=== PATIENT | male | born 1955 | race Caucasian/White ===

== ENCOUNTER 2019-04-11 21:11 | Inpatient (IN) | payer OTHER ==
[~2019-04-11] VITALS: Ht 180.3 cm; Wt 76.4 kg
[2019-04-11 22:02] LABS: Basophils # (auto) 0.1 uL; Eosinophils # (auto) 0.1 uL; Eosinophils % (auto) 1.4 % (0.0-7.0); Hematocrit 47.7 % (41.0-53.0); Hemoglobin 16.2 g/dL (13.5-17.5); Lymphocytes # (auto) 1.8 uL; Lymphocytes % (auto) 25.8 % (10.0-50.0); Mean Corpuscular Hemoglobin 31.2 pg (28.0-32.0); Mean Corpuscular Hgb Conc. 33.9 g/dL (32.0-36.0); Mean Corpuscular Volume 92.2 fL (80.0-100.0); Monocytes # (auto) 0.6 uL; Monocytes % (auto) 8.6 % (0.0-12.0); Neutrophils # (auto) 4.4 uL; Neutrophils % (auto) 63.2 % (37.0-80.0); Nucleated Red Blood Cells % 0.1 %; Platelet Count (auto) 317 10^3/uL (140-450); Red Blood Cells 5.18 10^6/uL (4.5-5.90); Red Cell Distribution Width 14.4 % (11.8-14.3); White Blood Cell 6.9 10^3/uL (4.4-10.8)
[2019-04-11 22:22] LABS: Alanine Aminotransferase 15 U/L (16-61); Albumin 3.4 g/dL (3.4-5.0); Anion Gap 6 (5-15); Aspartate Aminotransferase 13 U/L (15-37); BUN/Creatinine Ratio 16.9; Blood Urea Nitrogen 23 mg/dL (7-18); Calcium 8.2 mg/dL (8.5-10.1); Carbon Dioxide 28 mmol/L (21-32); Chloride 106 mmol/L (98-107); GFR African American 68 mL/min; GFR Non-African American 56 mL/min; Glucose 88 mg/dL (74-106); Sodium 140 mmol/L (136-145)
[2019-04-11 22:27] LABS: Alkaline Phosphatase 79 U/L (45-117); Bilirubin, Total 0.3 mg/dL (0.2-1.0); Total Protein 6.8 g/dL (6.4-8.2)
[2019-04-12] MEDS ORDERED: IPRATROPIUM BROM 0.5 MG/2.5ML INH SOL NEB ONE
[2019-04-12] MEDS ORDERED: ALBUTEROL SULF 2.5 MG/0.5ML(0.5%) NEB SOLN NEB ONE
[2019-04-12] MEDS ORDERED: FAMOTIDINE (10MG/ML) 2ML VL IV ONE (02:45)
[2019-04-12] MEDS ORDERED: IPRATROPIUM BROM 0.5 MG/2.5ML INH SOL NEB PRN (07:15)
[2019-04-12] MEDS ORDERED: ONDANSETRON HCL 4 MG/2 ML VIAL IV PRN (07:15)
[2019-04-12] MEDS ORDERED: ALBUTEROL SULF 2.5 MG/0.5ML(0.5%) NEB SOLN NEB PRN (07:15)
[2019-04-12] MEDS ORDERED: MORPHINE SULF INJ 2 MG/ML SYRINGE 1ML IV PRN ×2 (07:15)
[2019-04-12] MEDS ORDERED: ACETAMINOPHEN 500 MG TAB PO PRN (07:15)
[2019-04-12] MEDS ORDERED: HYDROcodone-ACET 5/325MG TAB PO PRN (07:15)
[2019-04-12] MEDS ORDERED: hydrALAZINE HCL 20 MG/ML VL IV PRN (07:15)
[2019-04-12] MEDS ORDERED: NITROGLYCERIN 0.4 MG SL TAB SL PRN (07:15)
[2019-04-12 07:33] LABS: CRP High Sensitivity 0.1 mg/dL (< 0.3)
[2019-04-12 09:00] VITALS: BP 162/104
--- NOTE | 2019-04-12 09:00 | NUR ---
Telemetry admit from ER MAN THOMPSON admitted to Telemetry unit after SBAR received. Patient oriented to MERCEDES VALIENTE, primary RN, unit, room, bed, and unit policies regarding patient care and visiting hours. Patient now on continuous telemetry monitoring, tele box # [id number] and telemetry reading on arrival to unit is . Patient placed on bedside oxygen, weighed by bed scale and encouraged to call if they need something. All questions and concerns addressed, patient verbalized understanding.
[2019-04-12 09:01] VITALS: BP 162/104
--- NOTE | 2019-04-12 10:30 | NUR ---
Respiratory note: PRN ASSESSMENT DONE. PT AWAKE, ALERT AND ORIENTED. PT ON RA SP02 95%. PT IS IN NO DISTRESS AT THIS TIME. BS ARE DIMINISHED. NO TREATMENT INDICATED AT THIS TIME. INFORMED PT TO HIT CALL BUTTON IF BECOMES SOB.
--- NOTE | 2019-04-12 11:40 | NUR ---
Stress Lab called due to patient cannot get a test done today, will be tomorrow morning. Patient notified.
[2019-04-12] MEDS: FAMOTIDINE 20 MG TAB PO SCH (11:44)
[2019-04-12] MEDS: ASPirin-EC 81 mg tab PO SCH (11:44)
[2019-04-12] MEDS: DOCUSATE SOD 100 MG CAP PO SCH ×2 (11:44→21:31)
[2019-04-12] MEDS: LISINOPRIL 10 MG TAB PO SCH (11:45)
[2019-04-12] MEDS: METOPROLOL TARTRATE 25 MG TAB PO SCH ×2 (11:45→21:31)
[2019-04-12 16:13] VITALS: BP 162/104
[2019-04-12 17:00] VITALS: BP 122/88
[2019-04-12 17:04] VITALS: BP 134/87
[2019-04-12 17:53] LABS: INR 0.93 (0.9-1.15); Partial Thromboplastin Time 30.8 sec (23.64-32.05)
[2019-04-12 18:14] LABS: Urine Bacteria NONE SEEN /hpf (None Seen); Urine Blood Negative /uL (Negative); Urine Specific Gravity 1.016 (1.001-1.035); Urine WBC <1 /hpf (0 - 3)
[2019-04-12 18:17] LABS: Alcohol, Urine < 3.0 mg/dL (0-5); Amphetamine Screen, Urine POSITIVE (NEGATIVE); Barbiturate Scree,Urine NEGATIVE (NEGATIVE); Benzodiazephine Screen, Urine NEGATIVE (NEGATIVE); Cannabinoid Screen, Urine POSITIVE (NEGATIVE); Cocaine Screen, Urine NEGATIVE (NEGATIVE); Opiate Scree,Urine NEGATIVE (NEGATIVE); Phencyclidine Screen, Urine NEGATIVE (NEGATIVE)
--- NOTE | 2019-04-12 19:45 | NUR ---
OPENING SHIFT NOTE RECEIVED REPORT FROM DAYSHIFT RN. PATIENT A/O X4, AMBULATORY. NO S/S OF DISTRESS OR SOB. NO PAIN NOTED OR REPORTED AT THIS TIME. DEPUTY AT BEDSIDE FOR SAFETY. UPDATED PATIENT ON POC, VERBALIZED UNDERSTANDING. BED LOCKED IN LOW POSITION, CALL LIGHT WITHIN REACH. WILL CONTINUE TO MONITOR PATIENT Q1HR AND PRN.
[2019-04-12] MEDS: ATORVASTATIN 20 MG TAB PO SCH (21:31)
[2019-04-12 22:19] VITALS: BP 127/94
--- NOTE | 2019-04-12 23:03 | NUR ---
Respiratory note: PT SEEN AND ASSESSED FOR PRN MED NEB TX AT 2303. TX NOT INDICATED AT THIS TIME. PT STATED THAT HE FEELS OKAY RIGHT NOW AND KNOWS TO CALL IF HE NEEDS A TX. HR 57 RR 20 POX 97% ON ROOM AIR.
[2019-04-13 05:00] VITALS: BP 131/75
[2019-04-13 07:01] LABS: INR 0.93 (0.9-1.15); Partial Thromboplastin Time 30.8 sec (23.64-32.05)
[2019-04-13 07:03] LABS: Basophils # (auto) 0.1 uL; Basophils % (auto) 0.8 % (0.0-2.0); Eosinophils # (auto) 0.1 uL; Eosinophils % (auto) 1.6 % (0.0-7.0); Hematocrit 52.3 % (41.0-53.0); Hemoglobin 17.5 g/dL (13.5-17.5); Lymphocytes # (auto) 2.2 uL; Lymphocytes % (auto) 27.1 % (10.0-50.0); Mean Corpuscular Hgb Conc. 33.4 g/dL (32.0-36.0); Mean Corpuscular Volume 92.9 fL (80.0-100.0); Monocytes # (auto) 0.7 uL; Monocytes % (auto) 8.6 % (0.0-12.0); Neutrophils # (auto) 5.1 uL; Neutrophils % (auto) 61.9 % (37.0-80.0); Nucleated Red Blood Cells % 0.1 %; Platelet Count (auto) 322 10^3/uL (140-450); Red Blood Cells 5.62 10^6/uL (4.5-5.90); Red Cell Distribution Width 14.9 % (11.8-14.3); White Blood Cell 8.3 10^3/uL (4.4-10.8)
[2019-04-13 07:04] LABS: Calcium 9.2 mg/dL (8.5-10.1); Potassium 4.4 mmol/L (3.5-5.1)
--- NOTE | 2019-04-13 07:29 | NUR ---
Opening Note Assumed pt care from [facility] nurse. Pt is a/ox4 with no s/s of distress or SOB. Pt is currently laying in bed with 2 L NC on PRN with no complaints. Discussed POC with pt and the scheduled stress test today and need to stay NPO until test; pt verbalized understanding. Safety measures maintained with call light within reach, bed in lowest position and side rails up. Will continue to monitor for changes q1hr and prn.
[2019-04-13] MEDS ORDERED: ADENOSINE 65 MG in GIVE UN-DILUTED 0 ML IV STA (08:09)
[2019-04-13] MEDS: METOPROLOL TARTRATE 25 MG TAB PO SCH ×2 (08:51→21:56)
[2019-04-13 09:00] VITALS: BP 142/95
[2019-04-13] MEDS: DOCUSATE SOD 100 MG CAP PO SCH ×2 (09:12→21:56)
[2019-04-13] MEDS: LISINOPRIL 10 MG TAB PO SCH (09:12)
[2019-04-13] MEDS: FAMOTIDINE 20 MG TAB PO SCH (09:12)
[2019-04-13] MEDS: ASPirin-EC 81 mg tab PO SCH (09:12)
[2019-04-13] MEDS ORDERED: SODIUM CHLORIDE 0.9% 1,000 ML IV ONE (09:45)
--- NOTE | 2019-04-13 10:13 | NUR ---
Dr Snell at Bedside No new orders at this time. Awaiting for pt to go down for stress test. Will continue to monitor.
--- NOTE | 2019-04-13 11:57 | NUR ---
Pt Taken Down to Stress Test Taken via wheel chair. No SOB or s/s of distress noted at this time.
[2019-04-13 13:04] VITALS: BP 105/57
--- NOTE | 2019-04-13 13:46 | NUR ---
PT BACK ON UNIT FROM STRESS TEST
[2019-04-13 17:06] VITALS: BP 112/75
--- NOTE | 2019-04-13 19:00 | NUR ---
Opening Shift Note Assumed care of patient, awake and alert. No S/S of distress/SOB or pain. POC discussed and questions answered. Bed is locked in lowest position with side rails up x3 for safety. Call light is within reach and patient encouraged to call for assists when needed, will continue to monitor for changes Q1hr and PRN.
[2019-04-13] MEDS: ATORVASTATIN 20 MG TAB PO SCH (21:56)
[2019-04-13 21:58] VITALS: BP 125/80
--- NOTE | 2019-04-14 00:17 | NUR ---
Respiratory note: PT SEEN AND ASSESSED FOR PRN MED NEB TX AT 0017. TX NOT INDICATED AT THIS TIME. PT IS CURRENTLY SLEEPING WITH NO DISTRESS NOTED. HR 63 RR 8 POX 97%.
[2019-04-14 04:55] VITALS: BP 120/84
[2019-04-14 05:20] LABS: Basophils # (auto) 0.1 uL; Basophils % (auto) 0.7 % (0.0-2.0); Eosinophils # (auto) 0.1 uL; Eosinophils % (auto) 1.8 % (0.0-7.0); Hematocrit 47.4 % (41.0-53.0); Hemoglobin 16.2 g/dL (13.5-17.5); Lymphocytes # (auto) 1.9 uL; Mean Corpuscular Hemoglobin 31.5 pg (28.0-32.0); Mean Corpuscular Hgb Conc. 34.2 g/dL (32.0-36.0); Mean Corpuscular Volume 92.2 fL (80.0-100.0); Monocytes # (auto) 0.7 uL; Monocytes % (auto) 9.1 % (0.0-12.0); Neutrophils # (auto) 4.7 uL; Neutrophils % (auto) 63.4 % (37.0-80.0); Platelet Count (auto) 258 10^3/uL (140-450); Red Blood Cells 5.14 10^6/uL (4.5-5.90); Red Cell Distribution Width 14.5 % (11.8-14.3); White Blood Cell 7.4 10^3/uL (4.4-10.8)
[2019-04-14 05:36] LABS: INR 0.95 (0.9-1.15); Partial Thromboplastin Time 30.7 sec (23.64-32.05)
[2019-04-14 05:50] LABS: BUN/Creatinine Ratio 21.9; Calcium 8.7 mg/dL (8.5-10.1); Potassium 4.3 mmol/L (3.5-5.1)
--- NOTE | 2019-04-14 07:50 | NUR ---
Opening Shift Note Assumed care of patient, patient is awake and relaxed. Patient is alert and orientated to person, place, time, and situation. No signs/symptoms of distress/SOB or pain. Patient has right leg cuffed to bed, guard at bedside. Patient has one left antecubital 20 gauge saline locked peripheral IV and one left hand 20 gauge saline locked peripheral IV. Bed is in lowest position with 2/4 side rails up and call light is within reach. Instructed on plan of care for today and to call for assist PRN, will continue to monitor for changes Q1hr and PRN.
--- NOTE | 2019-04-14 08:14 | NUR ---
Respiratory note: PT AWAKE, AND ALERT. NO RESPIRATORY DISTRESS NOTED. SPO2 96% ON RA, HR 57, RR 18, BS CLEAR T/O. PRN MEDNEB TX NOT INDICATED AT THIS TIME. PT INFORMED TO PUSH CALL BUTTON IF INCREASED WOB, SOB, OR WHEEZING OCCUR.
[2019-04-14 09:00] VITALS: BP 134/77
[2019-04-14] MEDS: SODIUM CHLORIDE 0.9% 1,000 ML IV SCH (09:30)
[2019-04-14] MEDS ORDERED: ACETYLCYSTEINE ORAL for CIN 20%(200MG/ML) 4ML PO ONE (09:30)
[2019-04-14] MEDS: DOCUSATE SOD 100 MG CAP PO SCH ×2 (09:53→21:57)
[2019-04-14] MEDS: ASPirin-EC 81 mg tab PO SCH (09:54)
[2019-04-14] MEDS: FAMOTIDINE 20 MG TAB PO SCH (09:54)
[2019-04-14] MEDS: METOPROLOL TARTRATE 25 MG TAB PO SCH ×2 (09:58→21:57)
[2019-04-14] MEDS: ACETYLCYSTEINE ORAL for CIN 20%(200MG/ML) 4ML PO SCH ×2 (10:30→21:57)
--- NOTE | 2019-04-14 12:43 | NUR ---
Nutrition Assessment Notes please see attached link for complete assessment Est. Needs BW [id number] kcal (25-30 kcal/kgBW), 62-77 gms pro (0.8-1.0 gms/kgBW r/t elev RFT). Will continue to monitor pertinent labs and reassess nutrient need prn Addendum: 04/14/19 at [address] Amended: Links added.
[2019-04-14 13:00] VITALS: BP 132/74
--- NOTE | 2019-04-14 14:30 | NUR ---
OFF UNIT Patient taken off unit via bed for left heart cath.
[2019-04-14] MEDS ORDERED: IOHEXOL 350 MG/ML 100ML IJ ONE ×2 (14:35→15:30)
[2019-04-14] MEDS ORDERED: LIDOCAINE 2%HCL (LOCAL ANESTH.) INJ 20ML MDV ONE (14:35)
[2019-04-14] MEDS ORDERED: MIDAZOLAM HCL 1MG/1ML-2 ML VIAL ONE (15:30)
[2019-04-14] MEDS ORDERED: fentaNYL CITRATE 100 MCG/2 ML VL ONE (15:30)
[2019-04-14] MEDS ORDERED: VERAPAMIL 2.5MG/ML INJ 2ML VIAL IV ONE (15:30)
[2019-04-14] MEDS ORDERED: SODIUM CHL 0.9% 50 ML ONE (15:30)
[2019-04-14] MEDS ORDERED: ANGIOMAX 250 MG VIAL IV ONE (15:30)
[2019-04-14] MEDS ORDERED: IODIXANOL 320MG/ML 100ML BTL IV ONE (15:34)
[2019-04-14] MEDS ORDERED: ASPirin 325 MG TAB ONE (16:05)
[2019-04-14] MEDS ORDERED: TICAGRELOR 90 MG TAB ONE (16:05)
--- NOTE | 2019-04-14 16:48 | NUR ---
RETURN TO UNIT Patient returned to unit via bed s/p left heart cath. There is a Vasc-band to incision site over right radial artery, no S/S of bleeding noted. Will continue to monitor site frequently and remove air per protocol.
--- NOTE | 2019-04-14 17:31 | NUR ---
VASC-BAND 2ml of air removed as per protocol. Will continue to monitor.
--- NOTE | 2019-04-14 17:48 | NUR ---
VASC-BAND 2ml of air removed as per protocol. No S/S of bleeding noted. Will continue to monitor.
--- NOTE | 2019-04-14 18:06 | NUR ---
VASC-BAND Assessed incision site, minimal bleeding noted. Inflated vasc-band with 2ml of air via syringe. Will continue to monitor per protocol.
--- NOTE | 2019-04-14 18:33 | NUR ---
VASC-BAND Incision site assessed, no signs of further bleeding indicated. 2ml of air removed, will continue to monitor.
--- NOTE | 2019-04-14 18:52 | NUR ---
VASC-BAND Incision site assessed, no signs of further bleeding indicated. 2ml of air removed, will continue to monitor.
--- NOTE | 2019-04-14 19:15 | NUR ---
CLOSING NOTE Endorsed care of patient to NOC RN, Deepti.
--- NOTE | 2019-04-14 20:22 | NUR ---
RT NOTE PT WAS SEEN BY RT FOR PRN HHN TX. NO SOB OR DISTRESS NOTED AT THIS TIME. HR 65, RR 16, BS CLEAR/DIM, POX 100% ON R/A. NO PRN TREATMENT INDICATED AT THIS TIME. CONT ORDERED Addendum: 04/14/19 at 2041 by Molly Siduh RT Amended: Links added.
[2019-04-14] MEDS: ATORVASTATIN 20 MG TAB PO SCH (21:57)
--- NOTE | 2019-04-14 21:58 | NUR ---
VASC-BAND vasc band removed and dry dressing applied (gauze and tegaderm). patient tolerated well and instructed to call if he notices any bleeding at site and/or any loss of sensation and motor function. will continue to monitor.
[2019-04-14] MEDS ORDERED: TICAGRELOR 90 MG TAB PO SCH (22:00)
[2019-04-14 22:16] VITALS: BP 145/90
[2019-04-15] MEDS: SODIUM CHLORIDE 0.9% 1,000 ML IV SCH ×2 (02:13→11:12)
[2019-04-15 05:42] VITALS: BP 120/70
--- NOTE | 2019-04-15 08:00 | NUR ---
OPENING NOTE ASSUMED CARE OF PATIENT FROM NOC RN. PATIENT IS AWAKE AND ALERT WITH NO SIGNS AND SYMPTOMS OF DISTRESS, SOB, PAIN. INSTRUCTED ON POC AND TO CALL FOR ASSISTANCE PRN, VERBALIZED UNDERSTANDING. BED IN LOWEST POSITION WITH SIDERAILS UP X2. CALL LIGHT WITHIN REACH. WILL CONTINUE TO MONITOR FOR CHANGES Q1H AND PRN.
--- NOTE | 2019-04-15 08:41 | NUR ---
Respiratory note: ASSESSED PT FOR PRN TX PT WAS AWAKE AND ALERT NO RESP DISTRESS NOTED. HR 80, RR 16, SPO2 98% ON ROOM AIR. BS ARE CLEAR, NO INDICATION FOR TX AT THIS TIME. PT KNOWS TO HAVE RT PAGED IF TX IS NEEDED.
[2019-04-15 09:29] VITALS: BP 147/72
[2019-04-15] MEDS ORDERED: CLOPIDOGREL BISULFATE 75 MG TAB PO SCH (10:00)
[2019-04-15] MEDS ORDERED: AMLO10TA13 PO (10:08)
[2019-04-15] MEDS ORDERED: ATOR20TA50 PO (10:08)
[2019-04-15] MEDS ORDERED: ASP81EC PO (10:08)
[2019-04-15] MEDS ORDERED: METO25TA36 PO (10:08)
[2019-04-15] MEDS ORDERED: CLOP75TA28 PO (10:08)
[2019-04-15 10:36] LABS: BUN/Creatinine Ratio 15.8; Calcium 8.6 mg/dL (8.5-10.1); Potassium 4.5 mmol/L (3.5-5.1)
[2019-04-15] MEDS: FAMOTIDINE 20 MG TAB PO SCH (10:47)
[2019-04-15] MEDS: METOPROLOL TARTRATE 25 MG TAB PO SCH (10:47)
[2019-04-15] MEDS: DOCUSATE SOD 100 MG CAP PO SCH (10:48)
[2019-04-15] MEDS: ASPirin-EC 81 mg tab PO SCH (10:50)
[2019-04-15] MEDS: ACETYLCYSTEINE ORAL for CIN 20%(200MG/ML) 4ML PO SCH (11:11)
--- NOTE | 2019-04-15 14:20 | NUR ---
DISCHARGE Discharge instructions given as ordered. Encouraged to establish and follow up with PMD once no longer incarcerated. All questions and concerns addressed. patient verbalized understanding. Medication reconciliation form completed and copy given to patient. IV removed with catheter intact and pressure dressing applied. Telemetry unit returned to ICU. Patient ambulated to vehicle with all personal belongings, accompanied by guard. No distress noted at time of departure.
== END 2019-04-15 14:20 | DRG 246 ==
LOC: EDBD 21:11 → ER 21:18 → EEVIPCON 21:18 → TELE 21:19 → TELE-WESTW 04-12 09:13
PROVIDERS: ADMIT Nurse Practitioner Acute Care; ATTEND Internal Medicine
PROC: 027034Z Dilation of Coronary Artery, One Artery with Drug-eluting Intraluminal Device, Percutaneous Approach (ICD-10-PCS; principal; 2019-04-14)
PROC: 4A023N7 Measurement of Cardiac Sampling and Pressure, Left Heart, Percutaneous Approach (ICD-10-PCS; 2019-04-14)
PROC: B2111ZZ Fluoroscopy of Multiple Coronary Arteries using Low Osmolar Contrast (ICD-10-PCS; 2019-04-14)
PROC: B2151ZZ Fluoroscopy of Left Heart using Low Osmolar Contrast (ICD-10-PCS; 2019-04-14)
DX: I25.10 Atherosclerotic heart disease of native coronary artery without angina pectoris (principal); N17.0 Acute kidney failure with tubular necrosis; J45.901 Unspecified asthma with (acute) exacerbation; I45.2 Bifascicular block; I12.9 Hypertensive chronic kidney disease with stage 1 through stage 4 chronic kidney disease, or unspecified chronic kidney disease; N18.3 Chronic kidney disease, stage 3 (moderate); I70.0 Atherosclerosis of aorta; F17.210 Nicotine dependence, cigarettes, uncomplicated; E78.5 Hyperlipidemia, unspecified; F12.10 Cannabis abuse, uncomplicated; F15.10 Other stimulant abuse, uncomplicated; I45.10 Unspecified right bundle-branch block; Z82.49 Family history of ischemic heart disease and other diseases of the circulatory system; Z80.0 Family history of malignant neoplasm of digestive organs; Z71.6 Tobacco abuse counseling; Z79.899 Other long term (current) drug therapy
CPT/HCPCS: 36415; 71045; 80048; 80053; 80061; 80307; 81001; 83735; 84484; 85025; 85379; 85610; 85730; 86141; 86850; 86900; 86901; 87081; 92928; 93005; 93017; 93306; 93458; 94640; 99152; 99153; C1874; C1887; G0378; J0153; J2250; Q9967